=== PATIENT | male | born 1985 | race African-American/Black ===

== ENCOUNTER 2022-05-10 17:57 | Emergency (ER) | payer OTHER ==
[~2022-05-10] VITALS: Ht 180.3 cm; Wt 73.0 kg
[2022-05-10 18:07] VITALS: BP 134/84
== END 2022-05-10 18:20 ==
LOC: ER 17:57
DX: Z02.79 Encounter for issue of other medical certificate (principal); E11.65 Type 2 diabetes mellitus with hyperglycemia
CPT/HCPCS: 99283